=== PATIENT | male | born 1985 | race Caucasian/White ===

== ENCOUNTER 2017-08-03 20:31 | Emergency (ER) | payer SELFPAY ==
[2017-08-03 20:59] VITALS: BP 130/70; PULSE 75; TEMP 98.3; BMI 32.1
--- NOTE | 2017-08-03 23:01 | PDOC ---
History of Present Illness - General Chief Complaint: Ear Problem Stated Complaint: EAR PROBLEM Time Seen by Provider: 08/03/17 22:36 History Source: Patient - History of Present Illness Initial Comments: 08/03/17 22:56 32 year old male left ear pain x 2 days and right itchy ear canal x 2 days. reports hard of hearing to left ear. denies pain/ fever Past History - Past Medical History Allergies/Adverse Reactions: Allergies Allergy/AdvReac Type Severity Reaction Status Date / Time No Known Allergies Allergy Verified 08/03/17 20:59 Home Medications: Ambulatory Orders Ibuprofen 400 mg PO TID #14 tablet 02/28/16 Ciprofloxacin HCl/Dexameth [Ciprodex Otic Suspension] 4 drop AU BID #1 bottle Thyroid Disease: No - Immunization History Immunization Up to Date: No - Psycho/Social/Smoking Cessation Hx Anxiety: No Suicidal Ideation: No Smoking History: Never smoked Have you smoked in the past 12 months: No Information on smoking cessation initiated: No Hx Alcohol Use: No Drug/Substance Use Hx: No Substance Use Type: None *Physical Exam - Vital Signs Last Vital Signs Temp Pulse Resp BP Pulse Ox 98.3 F 75 18 130/70 100 08/03/17 20:55 08/03/17 20:55 08/03/17 20:55 08/03/17 20:55 08/03/17 20:55 - Physical Exam HEENT: positive: Other (left ear canal erythema, white/pus inflammation, TM erythematous. no foreign body visulaized. right ear wnl) Respiratory/Chest: positive: Lungs Clear, Normal Breath Sounds Neurologic: positive: Alert, Normal Mood/Affect *DC/Admit/Observation/Transfer Diagnosis at time of Disposition: Otitis externa Qualifiers: Otitis externa type: unspecified type Chronicity: acute Laterality: left Qualified Code(s): H60.502 - Unspecified acute noninfective otitis externa, left ear - Discharge Dispostion Disposition: HOME - Prescriptions Prescriptions: Ciprofloxacin HCl/Dexameth [Ciprodex Otic Suspension] 4 drop AU BID #1 bottle - Referrals Referrals: Jaleel Alexander MD [Staff Physician] - - Patient Instructions Printed Discharge Instructions: Otitis Externa Additional Instructions: apply drops to left as prescribed. follow up with your ENT doctor as soon as possible.
== END 2017-08-03 23:06 | disposition home or self-care (01) ==
LOC: SUPCPDRO 20:31 → JERFT 20:31 → JER 20:31
DX: H60.502 Unspecified acute noninfective otitis externa, left ear (principal)
CPT/HCPCS: 99282-25

== ENCOUNTER 2020-01-11 23:48 | Emergency (ER) | payer OTHER ==
[2020-01-11 23:55] VITALS: BP 115/81; PULSE 98; TEMP 99.4; BMI 41.9
--- NOTE | 2020-01-12 01:18 | PDOC ---
History of Present Illness - General Chief Complaint: Sore Throat Stated Complaint: SORE THROAT - History of Present Illness Initial Comments: The pt is a 34M w/ no reported PMH who presents for evaluation of 5 days of throat pain. He states it is sharp, worse with swallowing, and not alleviated by anything he can identify. He endorses subjective fevers for which he has been taking Tylenol. He denies fevers, N/V, abdominal pain, trouble breathing, chest pain, diarrhea, dysuria, or rash. Pt has never had anything like this before. 01/12/20 01:56 Past History - Past Medical History Allergies/Adverse Reactions: Allergies Allergy/AdvReac Type Severity Reaction Status Date / Time No Known Allergies Allergy Verified 01/11/20 23:54 Home Medications: Ambulatory Orders Ibuprofen 400 mg PO TID #14 tablet 02/28/16 COPD: No Thyroid Disease: No - Immunization History Immunization Up to Date: Yes - Psycho Social/Smoking Cessation Hx Smoking History: Never smoked Have you smoked in the past 12 months: No Information on smoking cessation initiated: No Hx Alcohol Use: No Drug/Substance Use Hx: No Substance Use Type: None Review of Systems - Review of Systems Able to Perform ROS?: Yes Comments:: GENERAL/CONSTITUTIONAL: No fever or chills. No weakness HEAD, EYES, EARS, NOSE AND THROAT: No change in vision. No change in hearing. + sore throat CARDIOVASCULAR: No chest pain or shortness of breath RESPIRATORY: Denies cough, hemoptysis GASTROINTESTINAL: No nausea, vomiting, diarrhea or constipation GENITOURINARY: No dysuria, frequency, or change in urination MUSCULOSKELETAL: No joint or muscle swelling or pain. No neck or back pain SKIN: No rash NEUROLOGIC: No headache, vertigo, loss of consciousness, or change in strength/ sensation ENDOCRINE: No increased thirst. No abnormal weight change HEMATOLOGIC/LYMPHATIC: No anemia, easy bleeding, or history of blood clots ALLERGIC/IMMUNOLOGIC: No hives or skin allergy 01/12/20 01:17 Is the patient limited Bahraini proficient: No *Physical Exam - Vital Signs Last Vital Signs Temp Pulse Resp BP Pulse Ox 99.4 F 98 H 20 115/81 96 01/11/20 23:54 01/11/20 23:54 01/11/20 23:54 01/11/20 23:54 01/11/20 23:54 - Physical Exam GENERAL: Awake, alert, and oriented to person/place/time, in no acute distress HEAD: No signs of trauma, normocephalic, atraumatic EYES: PERRLA, EOMI, sclera anicteric, conjunctiva clear ENT: Hearing grossly normal, nares patent, oropharynx clear without exudates. No uvular deviation. Moist mucosa. Normal voice NECK: Normal ROM, supple, mild cricoid cartilage TTP w/o overlying swelling or erythema, no lymphadenopathy, or masses LUNGS: No distress, speaks in full sentences, clear to auscultation bilaterally HEART: Regular rate and rhythm, normal S1 and S2, no murmurs appreciated, peripheral pulses normal and equal bilaterally ABDOMEN: Soft, nontender, normoactive bowel sounds. No guarding, no rebound EXTREMITIES: Normal inspection, Normal range of motion, no edema. No clubbing or cyanosis NEUROLOGICAL: Cranial nerves II through XII grossly intact. Normal speech, normal gait, no focal sensorimotor deficits SKIN: Warm, Dry 01/12/20 01:17 Medical Decision Making - Medical Decision Making The pt is a 34M w/ no reported PMH who presents for evaluation of 5 days of throat pain and painful swallowing. ED Course Rapid strep neg Will give Lozenge 01/12/20 02:41 Will obtain XR of neck Films sent to imaging weapons officer naval activity, awaiting read 01/12/20 04:20 XR w/o epiglottis Plan for D/C w/ f/u Discharge instructions and return precautions given Patient in agreement and verbalized understanding Dispo: Home 01/12/20 04:45 Discharge - Discharge Information Problems reviewed: Yes Clinical Impression/Diagnosis: Sore throat Condition: Stable - Admission No - Follow up/Referral Referrals: Natalya Carmichael MD [Staff Physician] - Bean Siddiqui MD [Staff Physician] - Ray Dennis DO [Staff Physician] - [facility] [place] [facility] [place]] - Patient Discharge Instructions Patient Printed Discharge Instructions: Sore Throat Additional Instructions: You were seen in the Emergency Department for evaluation of sore throat. Your strep test was negative. Review the handout provided at discharge. You may use lozenges for symptomatic relief. Follow up with your primary care provider or gastroenterology referral given within a week. Return to the Emergency Department if you develop fevers, chest pain, trouble breathing, worsening symptoms, or any new/concerning symptoms. Lo vieron en el departamento de emergencias para evaluar el dolor de garganta. Cobb prueba de estreptococo fue negativa. Revise el folleto proporcionado al marlon. Puede usar pastillas para el alivio sintomtico. Sammy un seguimiento con cobb proveedor de atencin primaria o referencia de gastroenterologa dentro de ervin semana. Regrese al Departamento de Emergencias si desarrolla fiebre, dolor en el pecho, dificultad para respirar, empeoramiento de los sntomas o cualquier sntoma nuevo o preocupante. - Post Discharge Activity
--- NOTE | 2020-01-12 01:33 | PDOC ---
Attending Attestation - Resident Resident Name: Otilio Soto - ED Attending Attestation I have performed the following: I have examined & evaluated the patient, The case was reviewed & discussed with the resident, I agree w/resident's findings & plan - HPI HPI: 01/12/20 05:29 Pt comes with anterior neck pain. He has no fever. Pt reports no FB; no fish bone and no chicken bones. Pt has kids who have viral illness. But no other sick contacts - Physicial Exam PE: 01/12/20 05:32 Normal exam no fever HEENT normal pt has pain at his sternal notch. No cellulitis no crepitus and no node swelling - Medical Decision Making 01/12/20 05:28 Patient Name: ELIJAH BUTLER THIS IS A PRELIMINARY REPORT FROM IMAGING DIETETICS DIRECTOR DATE OF SERVICE: 2020-01-12 03:47:56 IMAGES: AP and lateral, 2 views soft tissue neck. EXAM: XR NECK SOFT TISSUE HISTORY: Lower neck pain with swallowing. COMPARISON: None. FINDINGS: There is prominence seen of the prevertebral soft tissues at the C3 and C4 levels resulting in narrowing of the upper airway. The rest of the airway appears patent. Calcification is noted of the thyroid cartilage. Epiglottis is normal in thickness. The imaged lung apices are clear. No acute osseous changes are noted. IMPRESSION: Narrowing of the airway at the C3-C4 level due to prevertebral soft tissue prominence. Further evaluation with CT soft tissue neck with contrast is recommended. 01/12/20 05:34 Pt will follow with ENT as an outpatient. He was given a copy of his results to show his doctor Strep negative; no epiglottitis
[2020-01-12] MEDS ORDERED: BENZOCAINE/MENTH/CETYLPYRD CL 1 EACH LOZENGE MM PRN (02:40)
== END 2020-01-12 04:48 | disposition home or self-care (01) ==
LOC: JER 23:48
DX: J02.9 Acute pharyngitis, unspecified (principal)
CPT/HCPCS: 70360-TC-FY; 87070; 87880; 99283-25

== ENCOUNTER 2020-01-13 12:56 | Emergency (ER) | payer OTHER ==
[2020-01-13 13:03] VITALS: BP 117/73; PULSE 100; TEMP 101.4; BMI 33.4
[2020-01-13] MEDS ORDERED: ACETAMINOPHEN 500 MG TABLET (FP) PO ONE (14:12)
[2020-01-13] MEDS ORDERED: ACETAMINOPHEN 500 MG TABLET (FP) ONE (15:07)
--- NOTE | 2020-01-13 15:17 | PDOC ---
History of Present Illness - General Chief Complaint: Cold Symptoms Stated Complaint: FLU LIKE SYMPTOMS Time Seen by Provider: 01/13/20 14:10 - History of Present Illness Initial Comments: 01/13/20 15:15 34-year-old male with flulike symptoms x5 days supportive care given in the emergency room as well as by his primary care physician Past History - Past Medical History Allergies/Adverse Reactions: Allergies Allergy/AdvReac Type Severity Reaction Status Date / Time No Known Allergies Allergy Verified 01/13/20 13:03 Home Medications: Ambulatory Orders Ibuprofen 400 mg PO TID #14 tablet 02/28/16 Guaifenesin Dm [Mucinex Dm -] 1 tab PO BID #60 tab.er.12h 01/13/20 COPD: No Thyroid Disease: No - Immunization History Immunization Up to Date: Yes - Psycho Social/Smoking Cessation Hx Smoking History: Never smoked Have you smoked in the past 12 months: No Hx Alcohol Use: No Drug/Substance Use Hx: No Substance Use Type: None Review of Systems - Review of Systems Constitutional: Yes: Chills, Fever, Malaise, Night Sweats HEENTM: Yes: Nose Congestion Respiratory: Yes: Cough *Physical Exam - Vital Signs Last Vital Signs Temp Pulse Resp BP Pulse Ox 101.4 F H 100 H 18 117/73 98 01/13/20 12:57 01/13/20 12:57 01/13/20 12:57 01/13/20 12:57 01/13/20 12:57 - Physical Exam 01/13/20 15:16 GENERAL: The patient is awake, alert, and fully oriented, in no acute distress. HEAD: Normal with no signs of trauma. EYES: sclera anicteric, conjunctiva clear. ENT: Ears normal tympanic membranes normal oropharynx clear uvula midline NECK: Normal range of motion LUNGS: Breath sounds equal, clear to auscultation bilaterally. No wheezes, and no crackles. HEART: S1 and S2 without murmur, rub or gallop. ABDOMEN: Soft, nontender, normoactive bowel sounds. No guarding, no rebound. No masses. EXTREMITIES: Normal range of motion, no edema. No clubbing or cyanosis. No cords, erythema, or tenderness. NEUROLOGICAL: Cranial nerves II through XII grossly intact. PSYCH: Normal mood, normal affect. SKIN: Warm, Dry, normal turgor, no rashes or lesions noted. ED Treatment Course - RADIOLOGY Radiology Studies Ordered: Category Date Time Status CHEST PA & LAT [RAD] Stat Radiology 01/13/20 14:47 Taken - Medications Given in the ED: ED Medications Discontinued Medications Generic Name Dose Route Start Last Admin Trade Name Alexeyq PRN Reason Stop Dose Admin Acetaminophen 1,000 mg 01/13/20 14:12 01/13/20 15:08 Tylenol - PO 01/13/20 14:13 1,000 mg ONCE ONE Administration Medical Decision Making - Medical Decision Making 01/13/20 15:16 Patient out of the window for Tamiflu supportive care Mucinex given for symptomatic relief of cough. Chest x-ray clear today Discharge - Discharge Information Problems reviewed: Yes Clinical Impression/Diagnosis: Viral URI with cough Condition: Stable Disposition: HOME - Admission No - Additional Discharge Information Prescriptions: Guaifenesin Dm [Mucinex Dm -] 1 tab PO BID #60 tab.er.12h - Follow up/Referral Referrals: John Gomez MD [Staff Physician] - - Patient Discharge Instructions Additional Instructions: Supportive care. Maintain hydration with Pedialyte. Tylenol and Motrin as directed for fever and body aches. Return to the emergency room for worsening symptoms. And without fail follow-up with your primary care physician in 1 to 2 days for further evaluation and treatment options. Mucinex as directed for cough. - Post Discharge Activity
== END 2020-01-13 15:57 | disposition home or self-care (01) ==
LOC: JERFT 12:56
DX: J06.9 Acute upper respiratory infection, unspecified (principal); B97.89 Other viral agents as the cause of diseases classified elsewhere
CPT/HCPCS: 71046-TC-FY; 99283-25